=== PATIENT | male | born 1990 | race Caucasian/White ===

== ENCOUNTER 2016-12-29 18:59 | Emergency (ER) | payer OTHER ==
[2016-12-29 19:16] VITALS: BP 142/77; PULSE 81; TEMP 98.8; BMI 37.5
[2016-12-29] MEDS ORDERED: TRIAMCINOLONE ACET 40MG/1ML VIAL IM ONE (20:33)
--- NOTE | 2016-12-29 20:34 | PDOC ---
History of Present Illness - General Chief Complaint: Rash Stated Complaint: RASH Time Seen by Provider: 12/29/16 20:15 History Source: Patient Exam Limitations: No Limitations - History of Present Illness Initial Comments: 12/29/16 21:07 Complaint: Right arm and chest wall on right side History of present illness: Patient is a 26-year-old male with a history of mood disorder here today complaining of worsening rash to his right medial forearm and upper arm and right lower chest wall for last 5 days. Patient reports that he had been around wooded areas. Patient denies that areas are painful. Pt. denies any difficulty breathing or swallowing. Timing/Duration: other (5 days rash rt. medial arm, has spread to upper medial arm, rt. anterior chest wall) Severity: moderate Associated Symptoms: reports: rash (pruritic ) Past History - Past Medical History Allergies/Adverse Reactions: Allergies Allergy/AdvReac Type Severity Reaction Status Date / Time No Known Drug Allergies Allergy Verified 12/29/16 19:13 apples AdvReac Uncoded 12/29/16 19:13 cherries AdvReac Uncoded 12/29/16 19:13 Psychiatric Problems: Yes (mood disorder ) Other medical history: Pt denies - Psycho/Social/Smoking Cessation Hx Suicidal Ideation: No Smoking History: Current every day smoker Have you smoked in the past 12 months: Yes Number of Cigarettes Smoked Daily: 3 Information on smoking cessation initiated: No Hx Alcohol Use: Yes (Weekends-beers) Drug/Substance Use Hx: Yes (Marijuana) Substance Use Type: Alcohol, Marijuana Review of Systems - Review of Systems Able to Perform ROS?: Yes Constitutional: No: Symptoms Reported HEENTM: No: Symptoms Reported Respiratory: No: Symptoms reported Cardiac (ROS): No: Symptoms Reported ABD/GI: No: Symptoms Reported : No: Symptoms Reported Musculoskeletal: No: Symptoms Reported Integumentary: Yes: Pruritus, Rash (rt. forearm and upper arm, rt. lower chest wall ) *Physical Exam - Vital Signs Last Vital Signs Temp Pulse Resp BP Pulse Ox 98.8 F 81 18 142/77 98 12/29/16 19:13 12/29/16 19:13 12/29/16 19:13 12/29/16 19:13 12/29/16 19:13 - Physical Exam General Appearance: Yes: Appropriately Dressed Respiratory/Chest: positive: Lungs Clear, Normal Breath Sounds Cardiovascular: positive: Regular Rhythm, Regular Rate, S1, S2 Integumentary: positive: Rash (with tiny vesicles linear forearm medially and upper arm and rt. anterior distal chest wall with surrounding minimal raised erythema, ) Neurologic: positive: Fully Oriented, Respond to painful stimul, Responsive Medical Decision Making - Medical Decision Making 12/29/16 21:09 Patient is a 26-year-old male with a history of mood disorder here today complaining of worsening rash to his right medial forearm and upper arm and right lower chest wall for last 5 days. Patient reports that he had been around wooded areas. Patient denies that areas are painful. Pt. denies any difficulty breathing or swallowing. contact dermatitis PLAN: kenalog 40 mg Im now follow up with blogs manager calamine lotion to rash 12/29/16 21:15 *DC/Admit/Observation/Transfer Diagnosis at time of Disposition: Contact dermatitis Qualifiers: Contact dermatitis type: unspecified Contact dermatitis trigger: non-food plants Qualified Code(s): L25.5 - Unspecified contact dermatitis due to plants, except food - Discharge Dispostion Disposition: HOME Condition at time of disposition: Stable - Referrals Referrals: Jakub Scott MD [Primary Care Provider] - Yoel Herr [Non Staff, Medical] - - Patient Instructions Additional Instructions: you may purchase calamine lotion and apply to rash to soathe itchiness Follow-up with blogs manager for further evaluation within next couple of days continue to take benadryl as needed as directed by instrumentation controls engineer for itchiness return to emergency room if symptoms worsen patient voiced understanding of discharge instructions and all questions were answered
[2016-12-29] MEDS ORDERED: TRIAMCINOLONE ACET 40MG/1ML VIAL ONE (20:38)
== END 2016-12-29 21:18 | disposition home or self-care (01) ==
LOC: JERFT 18:59
PROC: 3E0233Z Introduction of Anti-inflammatory into Muscle, Percutaneous Approach (ICD-10-PCS; principal; 2016-12-29)
DX: L25.5 Unspecified contact dermatitis due to plants, except food (principal)
CPT/HCPCS: 96372; 99281-25

== ENCOUNTER 2019-05-15 16:32 | Emergency (ER) | payer OTHER ==
[2019-05-15 16:37] VITALS: TEMP 97.8; BMI 42.3
[2019-05-15 18:21] LABS: BASO % 0.6 % (0-2.0); EOS % 0.8 % (0-4.5); HEMATOCRIT 45.7 % (35.4-49); HEMOGLOBIN 15.8 GM/dL (11.7-16.9); LYMPH % 16.8 % (8-40); MCH 29.3 pg (25.7-33.7); MCHC 34.6 g/dl (32.0-35.9); MEAN CELL VOLUME 84.9 fl (80-96); MEAN PLT VOLUME 9.2 fl (7.5-11.1); NEUT % 75.8 % (42.8-82.8); PLATELET COUNT 261 K/MM3 (134-434); RBC 5.39 M/mm3 (4.00-5.60); RDW 12.9 % (11.9-15.9); WHITE BLOOD COUNT 9.1 K/mm3 (4.0-10.0)
[2019-05-15 19:12] LABS: ALBUMIN 4.3 g/dl (3.4-5.0); ALK PHOS 101 U/L (45-117); ANION GAP 5 MMOL/L (8-16); BILIRUBIN,TOTAL 0.7 mg/dL (0.2-1); BLOOD UREA NITROGEN 13.3 mg/dL (7-18); CALCIUM 9.1 mg/dL (8.5-10.1); CHLORIDE 104 mmol/L (98-107); CO2 28 mmol/L (21-32); GLUCOSE,RANDOM 126 mg/dL (74-106); SGOT/AST 33 U/L (15-37); SGPT/ALT 78 U/L (13-61); SODIUM 138 mmol/L (136-145); TOT PROT 7.8 g/dl (6.4-8.2)
--- NOTE | 2019-05-15 19:58 | PDOC ---
History of Present Illness - General Chief Complaint: Chest Pain Stated Complaint: CHEST PAIN Time Seen by Provider: 05/15/19 16:57 History Source: Patient Exam Limitations: No Limitations - History of Present Illness Initial Comments: 05/15/19 19:53 HISTORY OF PRESENT ILLNESS: 28-year-old male presents emergency department for evaluation of pain to the chest which is been intermittent over the past month. Patient was seen and evaluated in March at another hospital for similar complaint. Patient says he had normal EKG, normal chest x-ray normal laboratory testing at that time. Patient has not followed up with his primary doctor as of yet. Patient with continued pain which worsened yesterday which was substernal. Reports feeling mildly short of breath and worsening pain when he breathes. He denies any fevers, chills, coughing or recent travel. No recent travel or sick contacts. PAST MEDICAL HISTORY: Denies past medical history SURGICAL HISTORY: Denies ALLERGIES: No known drug allergies REVIEW OF SYSTEMS General/Constitutional: Denies fever or chills. Denies weakness, weight change. HEENT: Denies change in vision. Denies ear pain or discharge. Denies sore throat. Cardiovascular: See HPI Respiratory: Denies cough, wheezing, or hemoptysis. Gastrointestinal: Denies nausea, vomiting, diarrhea or constipation. Denies rectal bleeding. Genitourinary: Denies dysuria, frequency, or change in urination. Musculoskeletal: Denies joint or muscle swelling or pain. Denies neck or back pain. Skin and breasts: Denies rash or easy bruising. Neurologic: Denies headache, vertigo, loss of consciousness, or loss of sensation. Psychiatric: Denies depression or anxiety. Endocrine: Denies increased thirst. Denies abnormal weight change. Hematologic/Lymphatic: Denies anemia, easy bleeding, or history of blood clots. Allergic/Immunologic: Denies hives or skin allergy. Denies latex allergy. PHYSICAL EXAM General Appearance: Well-appearing, appropriately dressed. No apparent distress , no intoxication. HEENT: EOMI, PERRLA, normal ENT inspection, normal voice, TMs normal, pharynx normal. No conjunctival pallor. No photophobia, scleral icterus. Neck: Supple. Trachea midline. No tenderness, rigidity, carotid bruit, stridor , lymphadenopathy, or thyromegaly. Respiratory/Chest: Lungs CTAB. No shortness of breath, respiratory distress, accessory muscle use. No crackles, rales, rhonchi, stridor, wheezing, dullness. Pain is reproducible over the lower part of the sternum. Cardiovascular: RRR. S1, S2. No JVD, murmur, bradycardia, tachycardia. Vascular Pulses: Dorsalis-Pedis (R): 2+, Dorsalis-Pedis (L): 2+ Gastrointestinal/Abdominal: Normal bowel sounds. Abdomen soft, non-distended. No tenderness or rebound tenderness. No organomegaly, pulsatile mass, guarding, hernia, hepatomegaly, splenomegaly. Lymphatic: No adenopathy, tenderness. Musculoskeletal/Extremities: Normal inspection. FROM of all extremities, normal capillary refill. Pelvis Stable. No CVA tenderness. No tenderness to extremities, pedal edema, swelling, erythema or deformity. Integumentary: Appropriate color, dry, warm. 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 Fully oriented, alert. Appropriate mood/affect. Motor strength 5/5. No appreciable EOM palsy, facial droop or sensory deficit. 05/15/19 20:05 Past History - Past Medical History Allergies/Adverse Reactions: Allergies Allergy/AdvReac Type Severity Reaction Status Date / Time No Known Drug Allergies Allergy Verified 05/15/19 16:37 apples AdvReac Uncoded 05/15/19 16:37 cherries AdvReac Uncoded 05/15/19 16:37 Home Medications: Ambulatory Orders Unobtainable 12/29/16 COPD: No Psychiatric Problems: Yes (mood disorder ) - Psycho Social/Smoking Cessation Hx Smoking History: Never smoked Have you smoked in the past 12 months: Yes Number of Cigarettes Smoked Daily: 3 Hx Alcohol Use: Yes (Weekends-beers) Drug/Substance Use Hx: Yes (Marijuana) Substance Use Type: Alcohol, Marijuana *Physical Exam - Vital Signs Last Vital Signs Temp Pulse Resp BP Pulse Ox 97.8 F 88 20 137/84 99 05/15/19 16:35 05/15/19 16:35 05/15/19 16:35 05/15/19 16:35 05/15/19 16:35 Heart Score/ECG Review - History History: Slightly suspicious - Electrocardiogram EKG: Normal - Age Age: </= 45 - Risk Factors Risk Factors Heart Score: Yes Positive family hx of cardiac disease Based on the list above the patient has:: 1-2 risk factors - Troponin Troponin: </= normal limit - Score Heart Score - Total: 1 ED Treatment Course - LABORATORY CBC & Chemistry Diagram: 05/15/19 17:59 05/15/19 17:59 - ADDITIONAL ORDERS Additional order review: Laboratory Results 05/15/19 05/15/19 17:59 17:59 Sodium 138 Potassium 4.0 Chloride 104 Carbon Dioxide 28 Anion Gap 5 L BUN 13.3 Creatinine 1.0 Est GFR (CKD-EPI)AfAm 119.86 Est GFR (CKD-EPI)NonAf 103.41 Random Glucose 126 H Calcium 9.1 Magnesium 2.2 Total Bilirubin 0.7 AST 33 ALT 78 H Alkaline Phosphatase 101 Creatine Kinase 142 Troponin I < 0.02 Total Protein 7.8 Albumin 4.3 05/15/19 17:59 RBC 5.39 MCV 84.9 MCHC 34.6 RDW 12.9 MPV 9.2 Neutrophils % 75.8 Lymphocytes % 16.8 Monocytes % 6.0 Eosinophils % 0.8 Basophils % 0.6 - RADIOLOGY Radiology Studies Ordered: Category Date Time Status CHEST PA & LAT [RAD] Stat Radiology 05/15/19 17:53 Ordered Medical Decision Making - Medical Decision Making 05/15/19 19:57 A/P: 28-year-old male with 6 substernal chest pain for 2 days Pain is reproducible with palpation superior to the xiphoid. Lungs clear to auscultation bilaterally S1-S2 present. No murmur, rub or gallop noted. No peripheral edema present. EKG, chest x-ray Laboratory testing including cardiac panel Likely discharge 05/15/19 20:07 Laboratory testing is unremarkable with normal cardiac profile. Troponin is less than 0.02. Chest x-ray as read by me: Angles sharp. Cardiac silhouette was within normal limits. Lung capps clear without infiltrate or consolidation noted. EKG sinus rhythm with rate of 92. Normal intervals with QTC [address] elevations or T wave inversions present. Discharge home with cardiology consult. Patient has been instructed to follow- up with his primary doctor as well as cardiology. I discussed the physical exam findings, ancillary test results and final diagnoses with the patient. I answered all of the patient's questions. The patient was satisfied with the care received and felt comfortable with the discharge plan and treatment plan. The patient will call their primary care physician within 24 hours to arrange follow-up and will return to the Emergency Department with any new, persistent or worsening symptoms. Discharge - Discharge Information Problems reviewed: Yes Clinical Impression/Diagnosis: Costochondritis Condition: Stable Disposition: HOME - Admission No - Follow up/Referral Referrals: Mikal Christianson MD [Primary Care Provider] - Rajendra Morgan MD [Staff Physician] - - Patient Discharge Instructions Additional Instructions: Take Tylenol or Motrin as needed for pain. Your EKG, chest x-ray and laboratory testing today were normal. Your emergency department visit is incomplete until you follow-up with your primary doctor. You have been given the number for a mill control operator. If you continue to experience chest pain should call to schedule an appointment for continued evaluation. Return to the emergency department for any new or worsening symptoms. Thank you very much for choosing us to provide your emergent healthcare needs. - Post Discharge Activity
[2019-05-15 20:20] VITALS: BP 135/75; PULSE 74
--- NOTE | 2019-05-16 09:59 | EKG ---
Test Reason : Blood Pressure : / mmHG Vent. Rate : 094 BPM Atrial Rate : 094 BPM P-R Int : 142 ms QRS Dur : 096 ms QT Int : 350 ms P-R-T Axes : 038 053 -18 degrees QTc Int : 437 ms NORMAL SINUS RHYTHM NONSPECIFIC T WAVE ABNORMALITY ABNORMAL ECG NO PREVIOUS ECGS AVAILABLE Confirmed by JALEN PATHAK MD ([id number]) on 05/16/2019 9:59:17 AM Referred By: Confirmed By:JALEN PATHAK MD
== END 2019-05-15 20:17 | disposition home or self-care (01) ==
LOC: JERFT 16:32
DX: M94.0 Chondrocostal junction syndrome [Tietze] (principal); F39 Unspecified mood [affective] disorder; Z91.018 Allergy to other foods
CPT/HCPCS: 36415; 71046-TC-FY; 80053; 82550; 83735; 84484; 85025; 93005; 93010; 99283-25

== ENCOUNTER 2023-08-31 11:18 | Emergency (ER) | payer OTHER ==
[2023-08-31 11:32] VITALS: BP 171/72; PULSE 72; RESP 18; TEMP 98.6; BMI 32.8
[2023-08-31 12:40] LABS: POTASSIUM 4.1 mmol/L (3.5-5.1)
[2023-08-31 12:43] LABS: ALBUMIN 3.7 g/dl (3.4-5.0); BLOOD UREA NITROGEN 5.8 mg/dL (7-18); CALCIUM 9.1 mg/dL (8.5-10.1)
[2023-08-31 12:46] LABS: CREATININE 0.8 mg/dL (0.55-1.3)
[2023-08-31 12:48] LABS: BILIRUBIN,TOTAL 0.4 mg/dL (0.2-1); TOT PROT 7.4 g/dl (6.4-8.2)
== END 2023-08-31 14:10 | disposition home or self-care (01) ==
LOC: JER 11:18
DX: M21.371 Foot drop, right foot (principal)
CPT/HCPCS: 80053; 83735; 99283-25